=== PATIENT | female | born 1970 | race Caucasian/White ===

== ENCOUNTER 2016-10-15 10:15 | Day surgery (SDC) | payer OTHER ==
[~2016-10-15] VITALS: Ht 157.5 cm; Wt 66.9 kg
[2016-10-15] MEDS ORDERED: LACTATED RINGERS 1,000 ML IV SCH (10:42)
[2016-10-15 10:59] VITALS: BP 119/78
[2016-10-15] MEDS ORDERED: LEVO75TA5 PO (11:08)
[2016-10-15] MEDS ORDERED: SIMV20TA3 PO (11:08)
[2016-10-15 11:17] LABS: HEMATOCRIT 41.8 % (34.6-47.8); HEMOGLOBIN 13.9 g/dL (11.7-16.4); WHITE BLOOD COUNT 7.1 x10^3/uL (3.4-10)
[2016-10-15 11:26] LABS: HCG UR OBC PASS
[2016-10-15 11:27] LABS: PATH.CAST-FLAG NOT PRESENT; SPERM-FLAG NOT PRESENT; SRC-FLAG NOT PRESENT; XTAL-FLAG NOT PRESENT; YLC-FLAG NOT PRESENT
[2016-10-15 11:29] LABS: ASPARTATE AMINO TRANSFERASE 11 U/L (15-37); BLOOD UREA NITROGEN 11 mg/dL (7-18)
[2016-10-15] MEDS ORDERED: MIDAZOLAM 1 MG/ML, 2ML ONE (12:40)
[2016-10-15] MEDS ORDERED: FENTANYL PF 100 MCG/2ML ONE ×3 (12:40→14:21)
[2016-10-15] MEDS ORDERED: SILVER NITRATE STICK TP ONE (12:45)
[2016-10-15] MEDS ORDERED: BUPIVACAINE/PF 0.25% ONE (12:46)
[2016-10-15] MEDS ORDERED: OXYcodone 5 MG/5 ML ORAL.SOL UDC PO PRN (13:00)
[2016-10-15] MEDS ORDERED: ONDANSETRON 2MG/ML, 2ML IVPush PRN (13:00)
[2016-10-15] MEDS ORDERED: LABETALOL 5MG/ML, 20ML IV PRN (13:00)
[2016-10-15] MEDS ORDERED: ACETAMINOPHEN 325 MG TABLET PO PRN (13:00)
[2016-10-15] MEDS ORDERED: MEPERIDINE/PF 25MG/0.5ML IVPush PRN (13:00)
[2016-10-15] MEDS ORDERED: PROMETHAZINE 25 MG/ML, 1ML IV PRN (13:00)
[2016-10-15] MEDS ORDERED: MIDAZOLAM 1 MG/ML, 2ML IV PRN (13:00)
[2016-10-15] MEDS ORDERED: ALBUTEROL SULFATE 2.5 MG/3 ML NPPB PRN (13:00)
[2016-10-15] MEDS ORDERED: FENTANYL PF 100 MCG/2ML IV PRN (13:00)
[2016-10-15] MEDS ORDERED: HYDROmorphone 1 MG/ML, 1ML IV PRN (13:00)
[2016-10-15] MEDS ORDERED: hydrALAzine 20 MG/ML, 1ML IV PRN (13:00)
[2016-10-15] MEDS ORDERED: SUCCINYLCHOLINE 20 MG/ML, 10ML ONE (13:02)
[2016-10-15] MEDS ORDERED: CEFAZOLIN 1,000 MG ONE (13:02)
[2016-10-15] MEDS ORDERED: DEXAMETHASONE 4 MG/ML, 5ML ONE (13:02)
[2016-10-15] MEDS ORDERED: PROPOFOL 10 MG/ML, 20ML ONE (13:02)
[2016-10-15] MEDS ORDERED: ROCURONIUM 10 MG/ML ONE ×2 (13:02)
[2016-10-15] MEDS ORDERED: ONDANSETRON 2MG/ML, 2ML ONE (13:02)
[2016-10-15] MEDS ORDERED: OXYcodone 5 MG/5 ML ORAL.SOL UDC ONE (14:21)
[2016-10-15] MEDS ORDERED: ACETAMINOPHEN 650 MG/20.3 ML UDC ONE (14:21)
[2016-10-15] MEDS ORDERED: HYDROcodone/APAP 7.5-325MG/15ML UDC ONE (17:50)
[2016-10-15] MEDS ORDERED: KETOROLAC 30 MG/1 ML ONE (17:57)
[2016-10-15] MEDS ORDERED: HYDROcodone/APAP 7.5-325MG/15ML UDC PO PRN (18:00)
== END 2016-10-15 18:40 | disposition home or self-care (01) ==
LOC: OUT 10:15
PROVIDERS: ATTEND Obstetrics & Gynecology
DX: Z30.2 Encounter for sterilization (principal); Z30.46 Encounter for surveillance of implantable subdermal contraceptive; E78.5 Hyperlipidemia, unspecified; E03.9 Hypothyroidism, unspecified
CPT/HCPCS: 11982; 36415; 58661; 80053; 81001; 81025; 85025; 86850; 86900; 87086; 88302; J0330; J0690; J1100; J2250; J2405; J2704; J3010; J3490; J7120